=== PATIENT | female | born 1990 | race Two or more races ===

== ENCOUNTER 2017-08-23 04:43 | Observation (INO) | payer SELFPAY ==
[2017-08-23 05:24] LABS: #Lymphocytes 0.8 thou/uL (1.20-3.40); #Monocytes 0.4 thou/uL (0.11-0.59); #Neutrophils 5.1 thou/uL (1.40-6.50); %Eosinophils 0.4 % (0.0-10.0); %Lymphocytes 12.8 % (21.0-51.0); %Monocytes 6.3 % (0.0-10.0); %Neutrophils 80.4 % (42.0-75.0); Hemoglobin 12.5 g/dL (12.0-16.0); Mean Corpuscular HGB CONC 33.6 g/dL (32.0-36.0); Mean Corpuscular Hemoglobin 29.8 pg (27.0-31.0); Mean Corpuscular Volume 88.7 fl (81.0-99.0); Mean Platelet Volume 7.1 fL (7.4-10.4); Platelet Count 250 thou/uL (130-400); RBC Distribution Width 11.3 % (11.5-14.5); Red Blood Cell (RBC) Count 4.21 mill/uL (4.20-5.40); White Blood Cell (WBC) Count 6.4 thou/uL (4.8-10.8)
[2017-08-23 05:35] LABS: Bilirubin Negative (Negative); Blood, Urine Negative (Negative); Clarity CLEAR (Clear); Glucose, Urine (Dipstick) Negative (Negative); Leukocyte Negative (Negative); Nitrite Negative (Negative); Protein, Urine (Dipstick) Negative (Neg-Trace); Specific Gravity, Urine 1.006 (1.002-1.036); Urobilinogen 0.2 mg/dL (0.2-1.0)
[2017-08-23 05:45] LABS: ALT (SGPT) 9 U/L (8-55); AST (SGOT) 19 U/L (5-34); Albumin 3.9 g/dL (3.5-5.0); Alkaline Phosphatase 69 U/L (40-150); Anion Gap 11 mmol/L (10-20); BUN (Urea Nitrogen) 5 mg/dL (7.0-18.7); Bilirubin, Total 0.4 mg/dL (0.2-1.2); Calc. Creatinine Clearance 0 mL/min (70-130); Calcium 8.7 mg/dL (7.8-10.44); Carbon Dioxide 23 mmol/L (22-29); Chloride 99 mmol/L (98-107); Estimated GFR-MDRD Greater than 90; Globulin 3.6 g/dL (2.4-3.5); Glucose 158 mg/dL (70-105); Protein, Total 7.5 g/dL (6.0-8.3); Sodium 130 mmol/L (136-145)
[2017-08-23 05:47] LABS: Potassium 2.5 mmol/L (3.5-5.1)
[2017-08-23 05:48] LABS: BHCG - Serum Negative (NEGATIVE); Pregs Control Background? CLEAR/WHITE (CLR/WHITE); Pregs Control Bar Appear? YES (CONTROL BAR)
[2017-08-23] MEDS ORDERED: Potassium Chloride 20 MEQ TAB ONE (06:46)
[2017-08-23] MEDS ORDERED: Potassium Chloride 20 MEQ/100 ML PREMIX BAG ONE (06:52)
[2017-08-23] MEDS ORDERED: Magnesium Sulfate 2 GM/100 ML BAG ONE (06:53)
[2017-08-23] MEDS ORDERED: Potassium Chloride 20 MEQ TAB PO SCH (08:00)
[2017-08-23] MEDS ORDERED: Ondansetron ODT 4 MG TAB PO PRN (08:49)
[2017-08-23] MEDS ORDERED: Ondansetron HCl/PF 4 MG/2 ML Vial IVP PRN (08:49)
[2017-08-23 08:52] VITALS: BMI 28.1
[2017-08-23] MEDS ORDERED: Potassium Chloride 40 MEQ in Premix Bag 1 BAG IVPB SCH (09:00)
[2017-08-23] MEDS ORDERED: Sodium Chloride 0.9% 1,000 ML IV SCH (09:00)
[2017-08-23] MEDS ORDERED: Bisacodyl 5 MG TAB PO PRN (09:01)
[2017-08-23 09:41] LABS: Amphetamine Not Detected (NotDetected); Barbiturates Screen Not Detected (NotDetected); Benzodiazepine Screen Not Detected (NotDetected); Cocaine Metabolite Screen Not Detected (NotDetected); Medtox Control Line Valid? VALID (VALID); Medtox Reader # READER 1; Methadone Not Detected (NotDetected); Methamphetamine Not Detected (NotDetected); Opiate Screen Not Detected (NotDetected); Oxycodone Screen Not Detected (NotDetected); Phencyclidine (PCP) Not Detected (NotDetected); THC/Cannabinoid Screen Detected (NotDetected); Tricyclic Screen Not Detected (NotDetected)
--- NOTE | 2017-08-23 09:59 | RAD ---
PA AND LATERAL CHEST: History: Chest pain. FINDINGS: The heart size is normal. The lungs are expanded without focal areas of consolidation, pneumothorax, or pleural effusions. No acute osseous abnormalities are seen. IMPRESSION: No radiographic evidence of acute cardiopulmonary process. POS: OFF
[2017-08-23] MEDS ORDERED: Potassium Chloride 40 MEQ, Admixture Fee 1 EACH in Sodium Chloride 0.9% 250 ML 250 ML IVPB SCH (10:00)
[2017-08-23] MEDS ORDERED: Promethazine HCl 25 MG/ML VIAL IM/IV PRN (10:05)
[2017-08-23] MEDS ORDERED: Azithromycin 500 MG in Sodium Chloride 0.9% 250 ML 250 ML IVPB SCH (10:15)
[2017-08-23] MEDS ORDERED: NS 0.9% w/ 40 MEQ KCL 1,000 ML IV SCH (10:15)
--- NOTE | 2017-08-23 10:20 | HP ---
PRIMARY CARE PROVIDER: None. CHIEF COMPLAINT: Nausea and vomiting. HISTORY OF PRESENT ILLNESS: Ms. Collins is a pleasant 27-year-old lady who was seen at [facility] on 08/23/2017. She reports that over the last 3 days, she has had cough. The cough is productive of yellowish sputu m, occasionally red. She has not been eating or drinking well for the last few days. She also repor ts nausea and vomiting over the last 3 days. Today, she was standing in front of a mirror and washin g her hands and then she noticed that her lips turned white. She started feeling nauseous at that ti me. She thought she would pass out and got into the shower. She improved. She then presented to [facility] emergency room. She denies any previous symptoms like this. REVIEW OF SYSTEMS: The following complete review of systems was negative, unless otherwise mentioned in the HPI or below: Constitutional: Weight loss or gain, ability to conduct usual activities. Skin: Rash, itching. Eyes: Double vision, pain. ENT/Mouth: Nose bleeding, neck stiffness, pain, tenderness. Cardiovascular: Palpitations, dyspnea on exertion, orthopnea. Respiratory: Shortness of breath, wheezing, cough, hemoptysis, fever or night sweats. Gastrointestinal: Poor appetite, abdominal pain, heartburn, nausea, vomiting, constipation, or diarr hea. Genitourinary: Urgency, frequency, dysuria, nocturia. Musculoskeletal: Pain, swelling. Neurologic/Psychiatric: Anxiety, depression. Allergy/Immunologic: Skin rash, bleeding tendency. PAST MEDICAL HISTORY: None. PAST SURGICAL HISTORY: No surgical history. PSYCHIATRIC HISTORY: Anxiety and depression. SOCIAL HISTORY: The patient smokes half to 1 pack of cigarettes a day. She uses alcohol occasionall y. She also reports occasional marijuana use. FAMILY HISTORY: Her father from heart disease. ALLERGIES: No known drug allergies. CURRENT MEDICATIONS: None. PHYSICAL EXAMINATION: GENERAL: On examination, Ms. Barker is awake and alert, not in acute distress. VITAL SIGNS: Blood pressure is 97/53, pulse is 89, she is breathing at rate of 20 and saturating 99% on room air. She is afebrile. EYES: No scleral icterus. No conjunctival pallor. ENT: Dry mucosal membranes. No oropharyngeal erythema or exudates. NECK: Supple, nontender, normal range of movement. Trachea is midline. RESPIRATORY: Accessory muscles of breathing are not active. Chest wall movements are symmetric bila terally. LUNGS: Clear to auscultation without wheeze, rhonchi or crepitations. CARDIOVASCULAR: S1 and S2 are heard, regular. Peripheral pulses palpable. No carotid bruit, no per icardial rub. ABDOMEN: Soft, nontender, bowel sounds heard, no hepatomegaly, no splenomegaly. NEUROLOGIC: Cranial nerves II-XII are intact. Deep tendon reflexes are 2+. SKIN: No rashes or subcutaneous nodules. She has multiple tattoos. PSYCHIATRIC: Normal mood and normal affect. Patient is oriented to person, place and time. LYMPHATIC: No cervical lymphadenopathy. IMAGING DATA AND LABORATORY DATA: Ms. Collins's labs and investigations were reviewed. I reviewed h er electrocardiogram, which shows normal sinus rhythm, no ST changes to suggest an acute coronary syn drome. She has a prolonged corrected QT interval of 489 milliseconds. I also reviewed her chest x-r ay, which does not show any pulmonary infiltrates. She has normal white count, normal hemoglobin, no rmal platelet count, decreased sodium of 130, decreased potassium of 2.5, normal creatinine, normal c alcium, unremarkable liver profile, negative serum test, negative urinalysis and urine toxi cology screen which is positive for cannabinoids. ASSESSMENT AND PLAN: Ms. Collins is a pleasant 27-year-old lady who was seen at [facility] on 08/23/2017. Her problem list includes: 1. Hypokalemia: Most likely secondary to vomiting. She is being admitted to the hospital for obser vation. We will replace potassium and recheck potassium level. 2. Nausea and vomiting - p.r.n. antiemetics. 3. Cough: She reports that it is productive of yellowish and occasionally red sputum. Could be sec ondary to bronchitis. Lungs are clear today. We will start her on empiric antibiotics. 4. Hyponatremia: Mild, likely asymptomatic, provide normal saline and recheck. 5. Dehydration: IV hydration. 6. Marijuana abuse: Patient has been counseled regarding marijuana cessation. LEVEL OF RISK: High. LEVEL OF COMPLEXITY: High.
[2017-08-23] MEDS: Nicotine 21 MG PATCH TD SCH (10:45)
[2017-08-23] MEDS: Potassium Chloride 20 MEQ TAB PO SCH ×2 (12:00→15:23)
[2017-08-23 16:46] LABS: Anion Gap 8 mmol/L (10-20); BUN (Urea Nitrogen) 4 mg/dL (7.0-18.7); Calc. Creatinine Clearance 133 mL/min (70-130); Calcium 8.3 mg/dL (7.8-10.44); Carbon Dioxide 26 mmol/L (22-29); Chloride 109 mmol/L (98-107); Estimated GFR-MDRD Greater than 90; Glucose 71 mg/dL (70-105); Sodium 139 mmol/L (136-145)
[2017-08-24 04:40] VITALS: TEMP 98.4
[2017-08-24 06:05] LABS: Anion Gap 9 mmol/L (10-20); BUN (Urea Nitrogen) 5 mg/dL (7.0-18.7); Calc. Creatinine Clearance 133 mL/min (70-130); Calcium 8.9 mg/dL (7.8-10.44); Carbon Dioxide 27 mmol/L (22-29); Chloride 106 mmol/L (98-107); Estimated GFR-MDRD Greater than 90; Glucose 87 mg/dL (70-105); Potassium 3.8 mmol/L (3.5-5.1); Sodium 138 mmol/L (136-145)
[2017-08-24 06:19] LABS: Hemoglobin 12.6 g/dL (12.0-16.0); Lymphocytes 54 % (21-51); MDiff Complete? YES; Mean Corpuscular HGB CONC 33.8 g/dL (32.0-36.0); Mean Corpuscular Hemoglobin 30.2 pg (27.0-31.0); Mean Corpuscular Volume 89.3 fl (81.0-99.0); Mean Platelet Volume 7.5 fL (7.4-10.4); Monocytes 13 % (0-10); Neutrophil 33 % (42-75); PLT Morphology Comment Appears Adequate; Platelet Count 243 thou/uL (130-400); RBC Distribution Width 11.7 % (11.5-14.5); RBC Morphology Normal; Red Blood Cell (RBC) Count 4.17 mill/uL (4.20-5.40); White Blood Cell (WBC) Count 3.6 thou/uL (4.8-10.8)
[2017-08-24 08:16] VITALS: BP 92/53
[2017-08-24] MEDS ORDERED: Enoxaparin Sodium 40 MG/0.4 ML SYRINGE SC SCH (09:00)
[2017-08-24 09:47] LABS: Mean Corpuscular HGB CONC 33.9 g/dL (32.0-36.0); Mean Corpuscular Volume 91.4 fl (81.0-99.0); Mean Platelet Volume 7.4 fL (7.4-10.4); Platelet Count 251 thou/uL (130-400); RBC Distribution Width 11.6 % (11.5-14.5); Red Blood Cell (RBC) Count 4.19 mill/uL (4.20-5.40); White Blood Cell (WBC) Count 3.5 thou/uL (4.8-10.8)
[2017-08-24] MEDS ORDERED: Azithromycin 500 MG in Sodium Chloride 0.9% 250 ML 250 ML IVPB SCH (10:00)
[2017-08-24] MEDS ORDERED: Azithromycin 250 MG TAB PO SCH (10:15)
[2017-08-24 10:33] LABS: Band 4 % (5-11); Eosinophils 1 % (0-10); Lymphocytes 62 % (21-51); MDiff Complete? YES; Monocytes 4 % (0-10); Neutrophil 27 % (42-75); RBC Morphology Normal; Reactive Lymphocytes 2 % (0-10)
[2017-08-24] MEDS: Nicotine 21 MG PATCH TD SCH (10:36)
--- NOTE | 2017-08-24 11:08 | DIS ---
DATE OF ADMISSION: 08/23/2017 DATE OF DISCHARGE: 08/24/2017 PRIMARY CARE PROVIDER: None. DISCHARGE DIAGNOSES: 1. Hypokalemia. 2. Nausea and vomiting. 3. Bronchitis. CONDITION OF PATIENT ON THE DAY OF DISCHARGE: Stable. I assessed Ms. Collins on the day of discharg e. She reports feeling better. PHYSICAL EXAMINATION: VITAL SIGNS: Stable. HEART: S1 and S2 are heard, regular. LUNGS: Clear to auscultation bilaterally. HOSPITAL COURSE: Ms. Collins is a pleasant 27-year-old lady who was admitted to [facility] on observation status on 08/23/2017 for nausea and vomiting, hypokalemia, and probable bronchitis. Potassium was replaced. She received intravenous fluids. She also had hyponatremia at the time of admission, which resolved. Chest x-ray was unremarkable. She was started on azithromycin and is being discharged home on Z-STEFFEN. On the day of discharge, she has a white count of 3,500, 27% neutrophils and 62% lymphocytes. Her ly mphocytes were actually low at the time of admission. This is likely reactive to infection. She is advised to follow up with a primary care provider and have her CBC checked in 3-5 days. She is also advised to return to emergency room for new or worsening symptoms. DISCHARGE DESTINATION: Home.
[2017-08-25] MEDS ORDERED: Azithromycin 250 MG TAB PO SCH (09:00)
--- NOTE | 2017-08-27 15:44 | EKG ---
Test Reason : Blood Pressure : / mmHG Vent. Rate : 091 BPM Atrial Rate : 091 BPM P-R Int : 138 ms QRS Dur : 086 ms QT Int : 398 ms P-R-T Axes : 071 075 056 degrees QTc Int : 489 ms Normal sinus rhythm with sinus arrhythmia Possible Left atrial enlargement Prolonged QT Abnormal ECG Confirmed by MANUELA SERRANO D.O. ([id number]), video news editor ROSIE RAMIREZ ([id number]) on 08/27/2017 3:44:12 PM Referred By: Confirmed By:MANUELA SERRANO D.O.
== END 2017-08-24 11:35 | disposition home or self-care (01) ==
LOC: ERS 04:43 → EDBD 04:43 → 2SW 06:38
PROVIDERS: ADMIT Internal Medicine; ATTEND Internal Medicine
DX: E87.6 Hypokalemia (principal); R11.2 Nausea with vomiting, unspecified; J40 Bronchitis, not specified as acute or chronic; F41.8 Other specified anxiety disorders; E87.1 Hypo-osmolality and hyponatremia; E86.0 Dehydration; F12.10 Cannabis abuse, uncomplicated; F17.210 Nicotine dependence, cigarettes, uncomplicated; Z72.89 Other problems related to lifestyle
CPT/HCPCS: 36415; 51701; 71046; 80048; 80053; 80306; 81003; 83735; 84703; 85025; 93005; 96361; 96365; 96366; 96367; 96368; 96372; 96376; A4216; A4353; G0378; J0456; J1650; J3475; J3480; J7050

== ENCOUNTER 2018-07-18 01:22 | Emergency (ER) | payer OTHER, SELFPAY ==
[2018-07-18] MEDS ORDERED: Lidocaine Viscous Sol 2% 15 ml UD Cup ONE (01:56)
[2018-07-18] MEDS ORDERED: Mag-Al 1200 mg/1200 mg/30 ML UDCUP ONE (01:56)
[2018-07-18 02:19] LABS: Anion Gap 13 mmol/L (10-20); BUN (Urea Nitrogen) 10 mg/dL (7.0-18.7); Calc. Creatinine Clearance 0 mL/min (70-130); Calcium 9.5 mg/dL (7.8-10.44); Carbon Dioxide 25 mmol/L (22-29); Chloride 103 mmol/L (98-107); Estimated GFR-MDRD Greater than 90; Glucose 84 mg/dL (70-105); Potassium 3.4 mmol/L (3.5-5.1); Sodium 138 mmol/L (136-145)
--- NOTE | 2018-07-18 07:50 | RAD ---
PORTABLE CHEST 1 VIEW: DATE: 07/18/2018. TIME: 1:39 a.m. HISTORY: Chest pain. FINDINGS: The heart size is normal. The lungs are clear. The bony thorax is normal. IMPRESSION: Normal exam. POS: OFF
== END 2018-07-18 02:30 ==
LOC: ERS 01:22
DX: R07.89 Other chest pain (principal); F41.9 Anxiety disorder, unspecified; F32.9 Major depressive disorder, single episode, unspecified; F17.210 Nicotine dependence, cigarettes, uncomplicated
CPT/HCPCS: 36415; 71045; 80048; 93005

== ENCOUNTER 2019-06-19 00:31 | Emergency (ER) | payer OTHER, SELFPAY ==
[2019-06-19] MEDS ORDERED: Ondansetron PF 4 MG/2 ML Vial ONE (00:55)
[2019-06-19 00:59] LABS: #Basophils 0.1 thou/uL (0.0-0.2); #Eosinphils 0.1 thou/uL (0.0-0.7); #Lymphocytes 1.9 thou/uL (1.20-3.40); #Monocytes 0.9 thou/uL (0.11-0.59); #Neutrophils 4.1 thou/uL (1.40-6.50); %Basophils 1.1 % (0.0-1.0); %Lymphocytes 27.5 % (21.0-51.0); %Monocytes 12.4 % (0.0-10.0); Hemoglobin 14.8 g/dL (12.0-16.0); Mean Corpuscular HGB CONC 34.5 g/dL (32.0-36.0); Mean Corpuscular Hemoglobin 30.9 pg (27.0-31.0); Mean Corpuscular Volume 89.8 fL (78.0-98.0); Platelet Count 368 thou/uL (130-400); RBC Distribution Width 11.2 % (11.5-14.5); Red Blood Cell (RBC) Count 4.78 mill/uL (4.20-5.40)
[2019-06-19 01:19] LABS: ALT (SGPT) 12 U/L (8-55); AST (SGOT) 19 U/L (5-34); Albumin 4.8 g/dL (3.5-5.0); Alkaline Phosphatase 74 U/L (40-110); Anion Gap 12 mmol/L (10-20); BUN (Urea Nitrogen) 12 mg/dL (7.0-18.7); Bilirubin, Total 0.7 mg/dL (0.2-1.2); Calc. Creatinine Clearance 0 mL/min (70-130); Calcium 10.2 mg/dL (7.8-10.44); Carbon Dioxide 28 mmol/L (22-29); Chloride 100 mmol/L (98-107); Estimated GFR-MDRD 73; Globulin 4.4 g/dL (2.4-3.5); Glucose 88 mg/dL (70-105); Potassium 3.1 mmol/L (3.5-5.1); Protein, Total 9.2 g/dL (6.0-8.3); Sodium 137 mmol/L (136-145)
[2019-06-19] MEDS ORDERED: Potassium Chloride 20 MEQ TAB ONE (01:39)
== END 2019-06-19 02:30 | disposition home or self-care (01) ==
LOC: ERS 00:31
DX: E87.6 Hypokalemia (principal); R07.9 Chest pain, unspecified; F41.9 Anxiety disorder, unspecified; F31.9 Bipolar disorder, unspecified; F17.210 Nicotine dependence, cigarettes, uncomplicated
CPT/HCPCS: 80053; 84484; 85025; 93005; 96361; 96374; J2405